=== PATIENT | male | born 1990 | race Caucasian/White ===

== ENCOUNTER 2020-08-31 03:44 | Emergency (ER) | payer BC ==
[~2020-08-31] VITALS: Ht 180.3 cm; Wt 103.6 kg
--- NOTE | 2020-08-31 04:10 | PHYS DOC ---
Past History Past Medical History: No Pertinent History (STEFANIA PÉREZ DO) Adult General Chief Complaint Chief Complaint: CONSTIPATION HPI HPI Patient is a healthy 30-year-old male who presents for constipation. States his last normal bowel movement was 1 week ago. He has had intermittent episodes of pellet-like bowel movements ever since but has not had any formed stool. Reports he has had good p.o. intake but has had poor fiber intake. States he has tried stool softeners and laxatives but is unsure of the names of each over the past week without significant relief in symptoms. Reports today with severe left lower quadrant pain in addition to left testicle pain. No fever, COVID-19 contact, recent travel or sick contact, syncope, chest pain, shortness of b reath, urinary symptoms, changes in bladder habits, no penile discharge. Patient denies being sexually active recently, no prior history of STIs (STEFANIA PÉREZ DO) Review of Systems Review of Systems Fourteen body systems of review of systems have been reviewed. See HPI for pertinent positives and negative responses, other mason all other systems are negative, non-pertinent or non-contributory (STEFANIA PÉREZ DO) Allergies Allergies Allergies Coded Allergies Type Severity Reaction Last Updated Verified No Known Drug Allergies 08/31/20 No (STEFANIA PÉREZ DO) Physical Exam Physical Exam Constitutional: Pt is oriented to person, place, and time. Pt appears well-developed and well- nourished. In moderate distress due to pain but is ambulatory HEENT: Head: Normocephalic and atraumatic. External ears unremarkable Conjunctivae and EOM are normal. Pupils are equal, round, and reactive to light. Oropharynx is clear and moist. No hematomas or lacerations or abrasions to face or scalp OP clear, no blood, no malocclusion, dentition intact Nares clear, no nasal septal hematoma Midface stable Neck: C-spine midline nontender, no step-offs Cardiovascular: Normal rate, regular rhythm and normal heart sounds. Pulmonary/Chest: Effort normal and breath sounds normal. No respiratory distress. No wheezes. CTA bilaterally Abdominal: Soft. Bowel sounds are normal. No guarding or rebound. There is no tenderness. Patient is mildly distended Genital examination performed, unremarkable uncircumcised penis without discharge nontender to palpation, negative inguinal hernia checks bilaterally, testicles equal in size, both descended, positive cremaster reflex, there is pain to palpation of left testicle without any obvious abnormalities visually seen or palpably appreciated Rectal examination performed, unremarkable visual inspection, unremarkable digital inspection with no obvious mass or impaction palpated Musculoskeletal: No bony tenderness to extremities, no deformities, full ROM extremities Chest wall stable Pelvis stable and non-tender No vertebral TTP and spine without stepoffs Neurological: Pt is alert and oriented to person, place, and time. Moving all extremities willfully, able to wiggle all fingers and toes Alert and oriented x 3 Sensation grossly intact Skin: Skin is warm and dry. No abrasions, no lacerations Psychiatric: Behavior is appropriate for situation (STEFANIA PÉREZ DO) Current Patient Data Vital Signs Vital Signs Date Time Temp Pulse Resp B/P (MAP) Pulse Ox O2 Delivery O2 Flow Rate FiO2 08/31/20 03:54 97.4 68 18 113/80 (91) 96 Room Air Lab Results Laboratory Tests Test 08/31/20 04:20 Sodium Level 142 mmol/L (136-145) Potassium Level 3.6 mmol/L (3.5-5.1) Chloride Level 103 mmol/L (98-107) Carbon Dioxide Level 25 mmol/L (21-32) Anion Gap 14 (6-14) Blood Urea Nitrogen 14 mg/dL (8-26) Creatinine 1.3 mg/dL (0.7-1.3) Estimated GFR (Cockcroft-Gault) 65.7 BUN/Creatinine Ratio 11 (6-20) Glucose Level 112 mg/dL (70-99) Calcium Level 9.6 mg/dL (8.5-10.1) Total Bilirubin 0.4 mg/dL (0.2-1.0) Aspartate Amino Transf (AST/SGOT) 34 U/L (15-37) Alanine Aminotransferase (ALT/SGPT) 75 U/L (16-63) Alkaline Phosphatase 63 U/L (46-116) Total Protein 7.5 g/dL (6.4-8.2) Albumin 3.9 g/dL (3.4-5.0) Albumin/Globulin Ratio 1.1 (1.0-1.7) (STEFANIA PÉREZ DO) EKG EKG [] (STEFANIA PÉREZ DO) Radiology/Procedures Radiology/Procedures [] (STEFANIA PÉREZ DO) Radiology/Procedures [address] [address] IMAGING REPORT Signed PATIENT: JUSTICE SMITH ACCOUNT: [id number] : 1990 LOCATION: ER AGE: 30 SEX: M EXAM STATUS: REG ER ORD. PHYSICIAN: STEFANIA PÉREZ DO REASON: lt testicle pain PROCEDURE: TESTICULAR/SCROTUM INDICATION: Testicular pain. COMPARISON: None. TECHNIQUE: Grayscale, color and spectral doppler ultrasound images obtained of the scrotum. FINDINGS: Right Testicle: 42 x 36 x 22 mm. Vascular flow is identified. Left Testicle: 38 x 30 x 22 mm. Vascular flow is identified. 15 x 10 mm x 20 mm right epididymal anechoic lesion Trace left hydrocele. IMPRESSION: * Vascular flow is identified to the bilateral testicles. * Right epididymal cyst or spermatocele. Electronically signed by: Chrissy Li MD (08/31/2020 6:14 AM) DESKTOP- [id number] DICTATED AND SIGNED BY: CHRISSY LI MD DATE: 08/31/20611 CC: STEFANIA PÉREZ DO; PCP,NO; PARIS LAWSON DO ~MTH0 0 (PARIS LAWSON DO) Heart Score HEART Score for Chest Pain: HEART Score for Chest Pain Response (Comments) Value History Slighlty/Non-Suspicious 0 Age < 45 0 Risk Factors 1 or 2 Risk Factors 1 Total 1 Risk Factors: Risk Factors: DM, Current or recent (<one month) smoker, HTN, HLP, family history of CAD, obesity. Risk Scores: Risk Factors: DM, Current or recent (<one month) smoker, HTN, HLP, family history of CAD, obesity. (STEFANIA PÉREZ DO) Course & Med Decision Making Course & Med Decision Making Pertinent Labs and Imaging studies reviewed. (See chart for details) Patient suffering from most likely diagnosis of constipation but pending ultraso und testicles to rule out potential torsion of left testicle given ongoing pain. Patient hemodynamically stable, is not passed any stool while in ER Nonetheless, patient still symptomatic and pending ultrasound evaluation at the end of my shift. Comprehensive signout given to oncoming physician. Please defer to his documentation regarding future care of patient while in our ER (STEFANIA PÉREZ DO) Course & Med Decision Making In brief patient is a 30-year-old male who presents with chief complaint of constipation for the past week. Initial vital signs unremarkable. Basic labs unremarkable. Given he did report some left groin pain ultrasound was obtained of his testicles. No signs of testicular torsion or infectious etiology. Cyst identified and these results were relayed to patient. On my repeat examination his abdomen is benign without reproducible tenderness. He does to me that he has had intermittent vomiting over the past week. He states he has not passed flatus in 3 days. Denies any abdominal surgical history. Although the possibility of bowel obstruction is very small I did recommend obtaining CT imaging given his associated symptoms. He is declining at this time. I did explain that we cannot fully exclude surgical etiology of his constipation without this imaging. He did express understanding would like to try oral medication at home. He will be discharged home with oral constipation medication. He was given strict 12-24 return precautions and expressed unde rstanding. Instructed to follow-up with his primary care physician in the next 2 to 3 days. Stable for discharge home. I provided verbal discharge instructions regarding their emergency department diagnosis. If you had any diagnostic studies ( Labs or Xray's, CAT scan, Ultrasound ) have your PCP (Primary Care Physician) review them with you since there may be results that require further follow up or investigation. Prognosis, expected clinical course, and return precautions were reviewed. I answered the patients questions and instructed them to return if any new or worsening symptoms develop. The patient expressed understanding of the instructions and reported that all of their questions had been answered. (PARIS LAWSON DO) Dragon Disclaimer Dragon Disclaimer This electronic medical record was generated, in whole or in part, using a voice recognition dictation system. (STEFANIA PÉREZ DO) Departure Departure: Impression: Primary Impression: Abdominal pain Disposition: 01 DC HOME SELF CARE/HOMELESS Condition: STABLE Referrals: PCP,NO (PCP) Patient Instructions: Constipation, Adult Additional Instructions: Please follow-up with your primary care physician in the next 2 to 3 days. Discharge Abdominal Pain Re-Check Precautions: I'm unsure of the specific cause of your abdominal pain. However, at this point I feel that you are low risk for a life threatening emergency and that discharge from the Emergency Department is safe. There is a very small possibility that you are just too early in your clinical course for our physical exam/labs/imaging to ascertain whether or not you have an emergent condition that could potentially cause permanent disability or be life threatening. As such, it is very important that you follow up with your primary doctor or return to the Emergency Department in 12-24 hours for re-assessment and further evaluation if clinically indicated. If you develop new or worsening symptoms then you should return to the Emergency Department immediately. Home Care Instructions: Abdominal Pain Many things may cause abdominal pain. Your ER visit might not show the exact reason you are having pain. In some cases, additional time is needed to determine if the cause is serious. Therefore you may be told to go home and watch for any changes or worsening in your condition. Before that, we may not know if you need more testing, or if hospitalization or surgery is necessary. If its not something serious, the pain may go away without treatment or get better with simple things like avoiding certain foods or medications. In the ER, your doctor asks you questions, examines you and in some cases, may order tests. These help doctors decide if the pain is from something serious. Tests are not always done and may not provide a definite answer. There can still be a problem, even with normal test results. Abdominal pain may be caused by something serious (like appendicitis), which is not obvious right away. Because of this, another checkup is needed to make sure you are OK. It is VERY IMPORTANT to follow up for a repeat exam, especially if you have any symptoms that are not going away or are getting worse. We recommend that you RETURN TO THE EMERGENCY ROOM IN 8-12 HOURS to be rechecked. If you cannot, you may follow up with your primary care doctor or clinic. It is important that you follow all of the instructions below. RETURN TO THE EMERGENCY ROOM IMMEDIATELY IF: The pain does not go away or gets worse. You have a fever. You keep throwing up and cannot keep anything down. You pass bloody or black stools. You develop new symptoms. HOME CARE INSTRUCTIONS Come back to the ER (or see your doctor) in 8-12 hours. DO NOT take laxatives unless directed by your doctor. Avoid the use of alcohol Take pain medicine only as directed by your doctor. Only take [id number] or prescription medicine as directed by your doctor. Try a clear liquid diet (broth, tea, jello, water) for the next 12-24 hours. Slowly move to a bland diet as tolerated. Do not eat greasy, fatty or spicy foods. Once you start getting better, go back to a normal, healthy diet, slowly over a few days. DISCHARGE PT INSTRUCTIONS: YOU HAVE BEEN EVALUATED FOR ABDOMINAL PAIN. HOWEVER, WE ARE UNABLE TO PROVIDE A DEFINITE CAUSE OF YOUR SYMPTOMS. EVEN THOUGH YOUR TESTS MAY HAVE BEEN NORMAL, YOU STILL COULD HAVE A SERIOUS CAUSE FOR YOUR ABDOMINAL PAIN, INCLUDING APPENDICITIS. THE BEST TEST TO DETERMINE IF YOU HAVE A SERIOUS CAUSE IS RE-EXAMINATION OVER TIME. WE USED TO ADMIT PATIENTS TO THE HOSPITAL FOR THIS, BUT CAN NOW ALLOW YOU TO GO HOME, & RETURN TO OUR ER THE NEXT DAY FOR RE- EXAMINATION. THUS, WE WOULD LIKE YOU TO RETURN TO OUR ER TOMORROW FOR YOUR RE- EVALUATION. (IF YOUR SYMPTOMS HAVE GONE AWAY, THEN YOU DO NOT NEED TO RETURN.) IF YOUR SYMPTOMS GET WORSE BETWEEN NOW & THEN, YOU SHOULD RETURN IMMEDIATELY & NOT WAIT UNTIL TOMORROW. SYMPTOMS TO LOOK FOR WORSENING PAIN, HIGH FEVER, PERSISTENT VOMITING [NOT CONTROLLED BY MEDICINE], AND/OR OVERALL WORSENING OF YOUR CONDITION. Scripts Sennosides/Docusate Sodium (Senna-Docusate Sodium Tablet) 1 Each Tablet 1 TAB PO DAILY for constipation for 5 Days, #5 TAB 0 Refills Prov: PARIS LAWSON DO 08/31/20 Magnesium Citrate (MAGNESIUM CITRATE) 296 Ml Solution 600 ML PO DAILY for constipation for 2 Days, #296 ML Prov: PARIS LAWSON DO 08/31/20 Ondansetron Hcl (ZOFRAN) 4 Mg Tablet 4 MG PO TID PRN PRN for NAUSEA, #9 TAB Prov: PARIS LAWSON DO 08/31/20 Problem Qualifiers Primary Impression: Abdominal pain Abdominal location: left lower quadrant Qualified Codes: R10.32 - Left lower quadrant pain STEFANIA PÉREZ DO Aug 31, 2020 04:10 PARIS LAWSON DO Aug 31, 2020 06:27
[2020-08-31] MEDS ORDERED: MAGNESIUM CITRATE 296 ML SOLUTION. ONE (04:11)
[2020-08-31] MEDS ORDERED: MAGNESIUM CITRATE 296 ML SOLUTION. PO ONE (04:15)
[2020-08-31] MEDS ORDERED: IV NORMAL SALINE 1,000ML 1,000 ML IV ONE (04:30)
--- NOTE | 2020-08-31 04:33 | RAD ---
INDICATION: Reason: llq pain, constipation / Spl. Instructions: / History: COMPARISON: None. IMPRESSION: Abdomen: 2 views obtained. Air scattered throughout the large and small bowel in a nonspecific but no t grossly obstructive pattern. No gross osseous destructive lesion. Electronically signed by: Paddy Espinoza MD (08/31/2020 4:30 AM) [id number]
[2020-08-31 04:55] LABS: CALCIUM 9.6 mg/dL (8.5-10.1); CREATININE 1.3 mg/dL (0.7-1.3); GFR 65.7; POTASSIUM 3.6 mmol/L (3.5-5.1)
[2020-08-31 05:01] LABS: ALBUMIN 3.9 g/dL (3.4-5.0); ALBUMIN/GLOBULIN RATIO 1.1 (1.0-1.7); TOTAL BILIRUBIN 0.4 mg/dL (0.2-1.0); TOTAL PROTEIN 7.5 g/dL (6.4-8.2)
[2020-08-31] MEDS ORDERED: BISACODYL TAB 5 MG TABLET.DR. PO ONE (05:30)
--- NOTE | 2020-08-31 06:16 | RAD ---
INDICATION: Testicular pain. COMPARISON: None. TECHNIQUE: Grayscale, color and spectral doppler ultrasound images obtained of the scrotum. FINDINGS: Right Testicle: 42 x 36 x 22 mm. Vascular flow is identified. Left Testicle: 38 x 30 x 22 mm. Vascular flow is identified. 15 x 10 mm x 20 mm right epididymal anechoic lesion Trace left hydrocele. IMPRESSION: * Vascular flow is identified to the bilateral testicles. * Right epididymal cyst or spermatocele. Electronically signed by: Paddy Espinoza MD (08/31/2020 6:14 AM) [id number]
[2020-08-31] MEDS ORDERED: SENN1TAB99 PO (06:27)
[2020-08-31] MEDS ORDERED: MAGN296S68 PO (06:27)
[2020-08-31] MEDS ORDERED: ONDA4TAB7 PO (06:27)
[2020-08-31 06:30] VITALS: BP 122/88
== END 2020-08-31 06:31 | disposition home or self-care (01) ==
LOC: ER 03:44
DX: K59.00 Constipation, unspecified (principal); R10.32 Left lower quadrant pain; N50.812 Left testicular pain
CPT/HCPCS: 36415; 74018; 76870; 80053; 84443; 96360; 96361; 99285; J7030

== ENCOUNTER → 2021-05-30 | Outpatient (CLI) | payer BC, OTHER ==
[~2021-05-30] MED LIST: MAGN296S68 PO; ONDA4TAB7 PO; SENN1TAB99 PO
--- NOTE | 2021-05-30 16:20 | RAD ---
Ultrasound of the left groin. HISTORY: Left groin pain Ultrasound was used to evaluate the left groin. A definitive hernia was not identified. Imaging with Valsalva did not show definitive hernia. No mass identified. IMPRESSION: 1. No mass or hernia noted in the left groin. Electronically signed by: Laron Brennan MD (05/30/2021 4:17 PM) [id number]
== END ==
LOC: US 15:27
PROVIDERS: ATTEND Surgery
DX: R10.30 Lower abdominal pain, unspecified (principal)
CPT/HCPCS: 76881